=== PATIENT | female | born 1985 | race Native Hawaiian/Other Pacific Islander ===

== ENCOUNTER 2016-09-03 17:01 | Inpatient (IN) | payer MEDICAID, OTHER ==
[2016-09-03 18:08] VITALS: BMI 26.1
[2016-09-03] MEDS ORDERED: Lactated Ringer's 1,000 ML IV SCH (18:15)
[2016-09-03 18:45] LABS: BASO % 0.1 % (0.0-2.0); EOS % 0.2 % (0.0-4.0); HEMATOCRIT 32.5 % (34.0-47.0); LYMPH # 2.2 K/uL (1.0-4.3); LYMPH % 17.5 % (20.0-40.0); MEAN CELL VOLUME 79.9 fL (81.0-99.0); MEAN CORPUSCULAR HEMOGLOBIN 26.3 pg (27.0-31.0); MEAN CORPUSCULAR HGB CONC 32.9 g/dL (33.0-37.0); MONO # 0.7 K/uL (0.0-0.8); MONO % 5.9 % (0.0-10.0); RED CELL DISTRIBUTION WIDTH 14.1 % (11.5-14.5); WHITE BLOOD COUNT 12.6 K/uL (4.8-10.8)
[2016-09-03] MEDS ORDERED: Penicillin G Potassium 5 MU in Dextrose 5% In Water 50 ML IV ONE (18:48)
[2016-09-03 18:49] LABS: CHLORIDE 104 mmol/L (98-107); RBC URINE < 1 /hpf (0-3); URINE BILIRUBIN NEGATIVE (NEGATIVE); URINE BLOOD 3+ (NEGATIVE); URINE COLOR Straw (YELLOW); URINE GLUCOSE (UA) NORMAL (Normal); URINE KETONE NEGATIVE (NEGATIVE); URINE LEUKOCYTE ESTERASE NEG Leu/uL (Negative); URINE PROTEIN NEGATIVE (NEGATIVE); URINE UROBILINOGEN NORMAL mg/dL (0.2-1.0); WBC URINE < 1 /hpf (0-5)
[2016-09-03 18:50] LABS: POTASSIUM 3.9 mmol/L (3.6-5.2); SODIUM 135 mmol/L (132-148)
[2016-09-03 18:52] LABS: AST/SGOT 22 U/L (14-36); BILIRUBIN,TOTAL 0.5 mg/dL (0.2-1.3); BLOOD UREA NITROGEN 4 mg/dL (7-17); CARBON DIOXIDE 20 mmol/L (22-30); GFR AFRICAN-AMERICAN > 60; TOTAL PROTEIN 6.9 g/dL (6.3-8.3)
[2016-09-03 18:53] LABS: ALKALINE PHOSPHATASE 162 U/L (38-126); ALT/SGPT 18 U/L (9-52); CALCIUM 8.7 mg/dl (8.6-10.4); GLUCOSE,RANDOM 79 mg/dL (65-105)
[2016-09-03] MEDS ORDERED: Benzocaine/Menthol 20%-0.5% Topical Spray (60 ml) TOP PRN (19:52)
[2016-09-03] MEDS ORDERED: Oxycodone/Acetaminophen 5/325 mg Tab PO PRN (19:52)
--- NOTE | 2016-09-03 20:33 | OBHP ---
Datetime: 09/03/2016 17:55 IP Adm Impression: , intrauterine ; Active labor; Intact Membranes IP Admit Plan: Admit to unit; Initiate labor protocol Admit Comment, IP Provider: Farrah ID [id number]. Even with building contractor, patient was relatively poor in giving her history 30 yo P1, BLAZE 10/07, EGA 35 weeks, c/o abdominal pain, and vaginal bleeding - both on set 1400 hour s. (+) AFM; deines LOF. Had visit earlier: had cervical exam. 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 x 9 years Fam Hx: Mother alive 54 y.o. Father alive 55 y.o. - both, no med issues. No known fam h/o cancer Assessment: 30 yo P0101, prev h/o delivery, in active labor. GBS - too early for testing. Category 1 tracing. Clinically stable Plan: 1) Admit 2) NPO 3) Admission labs 4) Continuous EFM 5) Epidrual, upon request 6) Penicillin G 7) Anticpate vaginal delivery Pelvic Type - PN: Adequate Extremities - PN: Normal Abdomen - PN: Normal Back - PN: Normal Breast - PN: Not Done Lungs - PN: Normal Heart - PN: Normal Thyroid - PN: Not Done Neurologic - PN: Normal HEENT - PN: Normal General - PN: Normal Presentation-Admit: Vertex FHR - Baseline A Provider: 135 Membranes, Provider: Intact Contraction Comments Provider: 1-2 minutes Comments, ACOG Physical Exam: Skin: warm, dry, intact Abdomen: gravid; soft, non tender; fundal height 34 cm All other systems reviewed and are negative Gestation - Est Wks by US: 35.0 IP Hx Assessment: The History has been Reviewed and is Current EGA AdmitDate IP: 35.1 IP Indication for Induction: Not Applicable IP Chief Complaint: Uterine contractions NICHD Variability Prov Fetus A: Moderate 6-25bpm NICHD Accel Fetus A IP Provider: 15X15 FHR Category Provider Fetus A: Category I NICHD Decel Fetus A IP Provider: None Dilatation, Provider: 4-5 Effacement, Provider: 90 Station, Provider: -2 Genitourinary Exam: Normal DTRs - PN: Not Done
[2016-09-03] MEDS ORDERED: Penicillin G Potassium 2.5 MU in Dextrose 5% In Water 50 ML IV SCH (23:00)
--- NOTE | 2016-09-04 06:06 | OBDS ---
DELIVERY PERSONNEL Delivery Doctor: Eliz Ambrocio MD Mycologist: Sami Mcclelland RN MATERNAL INFORMATION Delivery Anesthesia: None Medications in Delivery: pitocin 20 Maternal Complications: Other Other Maternal Complications: Provider Comments: Uncomplicated vaginal delivery, live male, HELEN, weight 5lb 9oz, Apgars 9/ 9. Peds present at delivery. Cord pH sent. Spontaneous delivery of placenta, grossly intact; 3 vessel cord. Cervix, vagina, perineum inspected - laceration as above; repaired. Hemostasis assured. Patient tolerated procedure well. Bonded with ; transferred to nursery. Mother and in elia in stable condition LABOR SUMMARY EDC: 10/07/2016 00:00 No. Babies in Womb: 1 Attempted: No Labor Anesthesia: None LABOR INFORMATION Reason for Induction: Not Applicable Onset of Labor: 09/03/2016 17:52 Complete Dilatation: 09/03/2016 18:45 Group B Beta Strep: unknown Antibiotics # of Doses: Pen G 5 mil units x1 dose Antibiotics Time of Last Dose: 09/03/16 @ 1859 Steroids Given: None Reason Steroids Not Administered: Not Applicable MEMBRANES Membranes Rupture Method: Spontaneous Rupture of Membranes: 09/03/2016 18:45 Length of Rupture (hrs): 0.30 Amniotic Fluid Color: Clear Amniotic Fluid Amount: Moderate Amniotic Fluid Odor: Normal STAGES OF LABOR Stage 1 hrs: 0 Stage 1 min: 53 Stage 2 hrs: 0 Stage 2 min: 18 Stage 3 hrs: 0 Stage 3 min: 9 Total Time in Labor hrs: 1 Total Time in Labor min: 20 VAGINAL DELIVERY Episiotomy: None Laceration Extension: Second Degree Laceration Type: Vaginal Laceration Repair: Yes Laceration Repair Note: 2-0 chromic, in routine fashion Hemostasis assured. Patient tolerated procedure well Initial Vag Sponge Count: 10 Final Vag Sponge Count: 10 Initial Vag Sharps Count: 2 Final Vag Sharps Count: 2 Sponge Count Correct: Yes Sharps Count Correct: Yes Count Comment: Correct BABY A INFORMATION Infant Delivery Date/Time: 09/03/2016 19:03 Method of Delivery: Vaginal Born in Route : No : N/A Forceps: N/A Vacuum Extraction: N/A Shoulder Dystocia : No SHOULDER DYSTOCIA BABY A Infant Delivery Date/Time: 09/03/2016 19:03 PRESENTATION/POSITION BABY A Presentation: Cephalic Cephalic Presentation: Vertex Vertex Position: Left Occipital Anterior Breech Presentation: N/A PLACENTA INFORMATION BABY A Placenta Delivery Time : 09/03/2016 19:12 Placenta Method of Delivery: Spontaneous Placenta Status: Delivered SCORES BABY A Heart Rate 1 min: >100 bpm Resp Effort 1 min: Good Cry Reflex Irritability 1 min: Cough or Sneeze or Pulls Away Muscle Tone 1 min: Active Motion Color 1 min: Body Athelstan, Extremities Blue SCORE 1 MIN: 9 Heart Rate 5 min: >100 bpm Resp Effort 5 min: Good Cry Reflex Irritability 5 min: Cough or Sneeze or Pulls Away Muscle Tone 5 min: Active Motion Color 5 min: Body Athelstan, Extremities Blue SCORE 5 MIN: 9 INFORMATION BABY A Gestational Age at Delivery: 35.0 Gestational Status: Term Outcome : Liveborn Infant Condition : Stable Sex: Male IDENTIFICATION/MEDS BABY A ID Band Number: [id number] ID Band Location: Left Leg; Left Arm Sensor Applied: Yes Sensor Number: [id number] Sensor Location : Cord Clamp WEIGHT/LENGTH BABY A Infant Birthweight (gms): 2515 Weight (lb): 5 Weight (oz): 9 Infant Length Inches: 18.75 Length cms: 47.6 CORD INFORMATION BABY A No. Cord Vessels: 3 Nuchal Cord : N/A Suction: Mouth; Nose ASSESSMENT BABY A Complications: None Physical Findings at Delivery: Within Normal Limits Respirations: Appears Normal Human Resources Executive Assistant/ALS Called : No Care By: dr rushing Transferred To: [place] [facility]
[2016-09-04 07:30] LABS: HEMATOCRIT 32.8 % (34.0-47.0); MEAN CELL VOLUME 79.9 fL (81.0-99.0); MEAN CORPUSCULAR HEMOGLOBIN 25.9 pg (27.0-31.0); MEAN CORPUSCULAR HGB CONC 32.4 g/dL (33.0-37.0); WHITE BLOOD COUNT 12.9 K/uL (4.8-10.8)
--- NOTE | 2016-09-04 08:05 | OBPPN ---
Datetime: 09/04/2016 08:04 PP Pain Prov: Within normal limits PP Nausea Prov: Denies PP Flatus Prov: Yes PP BM Prov: No PP Heart Prov: Normal PP Lungs Prov: Normal PP Abdomen/Uterus Prov: Normal PP Lochia Prov: Normal PP Vulva/Perineum Prov: Normal PP CVA Tenderness Prov: Normal PP Extremities Prov: Normal PP C/S Incision Prov: Not Applicable PP Progress Prov: Normal PP Impression Prov: Normal progression PP Plan Prov: Continue present management PP Progress Note Prov: S-patient denies any complaints.Pain well controlled.Denies nausea, vomiting, headache. chest pain, shortness of breath, numbness or tingling in hands and feet O-VSS Afebrile Fundus firm and below umbilcius Extremities no calf tenderness A/P Patient s/p vaginal delivery PPD 1 doing well -continue routine pp care -follow up am [facility] -anticipate discharge tomorrow Vital Signs Provider PP: Reviewed; Within Normal Limits
[2016-09-04] MEDS: Multiple Vitamins Tab PO SCH (10:02)
--- NOTE | 2016-09-05 08:18 | OBPPN ---
Datetime: 09/05/2016 08:15 PP Pain Prov: Within normal limits PP Nausea Prov: Denies PP Flatus Prov: Yes PP Heart Prov: Normal PP Lungs Prov: Normal PP Abdomen/Uterus Prov: Normal PP Extremities Prov: Normal PP Comments Phys Exam Prov: fudus below umblicus ext no edema,no calf ten PP Impression Prov: Normal progression PP Plan Prov: Discharge PP Progress Note Prov: pt was seen at bed side, pain under control,no n/v, tolerating deit,voiding,m in lochias,flatus + ppd#2 s/p dc home no sex motrin prn f/u in clinic in 6week Vital Signs Provider PP: Reviewed; Within Normal Limits
--- NOTE | 2016-09-05 08:18 | OBDCSUM ---
Datetime: 09/05/2016 08:16 Discharged to, Provider: Home Follow up at, Provider: [facility] Disch Instr Diet: Regular Discharge Diagnosis, Provider: Delivery Follow up in weeks, Provider: clinic Disch Activity Restrictions: No exercising; No lifting; No driving; Minimize walking; Minimize stair -climbing; No sexual activity; Nothing in vagina - [place], tampons, douche Discharge Comment, Provider: nio sex motrin prn f/u in 6week Discharge Diagnosis Prov Other: 35weeks
[2016-09-05 08:38] VITALS: BP 111/75; PULSE 84; RESP 18; TEMP 97.2; O2SAT 98
[2016-09-05] MEDS: Multiple Vitamins Tab PO SCH (09:25)
== END 2016-09-05 11:30 | disposition home or self-care (01) | DRG 372 ==
LOC: C.EROB 17:01 → C.4D 18:13 → C.4M 22:10
PROVIDERS: ADMIT Obstetrics & Gynecology; ATTEND Obstetrics & Gynecology
PROC: 10E0XZZ Delivery of Products of Conception, External Approach (ICD-10-PCS; principal; 2016-09-03)
PROC: 0KQM0ZZ Repair Perineum Muscle, Open Approach (ICD-10-PCS; 2016-09-03)
DX: O60.14X0 Preterm labor third trimester with preterm delivery third trimester, not applicable or unspecified (principal); O70.1 Second degree perineal laceration during delivery; Z37.0 Single live birth; Z3A.35 35 weeks gestation of pregnancy

== ENCOUNTER 2017-03-15 16:22 | Emergency (ER) | payer MEDICAID, OTHER ==
[2017-03-15 16:22] VITALS: BMI 26.1
[2017-03-15 16:27] VITALS: BP 120/80; PULSE 87; RESP 20; TEMP 97.3; O2SAT 100
--- NOTE | 2017-03-15 16:39 | C.PDOC ---
Time Seen by Provider: 03/15/17 16:33 Chief Complaint (Nursing): Dental Pain Past Medical History Vital Signs: Last Vital Signs Temp 97.3 F L 03/15/17 16:24 Pulse 87 03/15/17 16:24 Resp 20 03/15/17 16:24 BP 120/80 03/15/17 16:24 Pulse Ox 100 03/15/17 16:24 - [facility] Procedures DELIVERY OF PRODUCTS OF CONCEPTION, EXTERNAL APPROACH (09/03/16) REPAIR PERINEUM MUSCLE, OPEN APPROACH (09/03/16) - Social History Hx Alcohol Use: No Hx Substance Use: No - Immunization History Hx Tetanus Toxoid Vaccination: No Hx Influenza Vaccination: No Hx Pneumococcal Vaccination: No ED Course And Treatment O2 Sat by Pulse Oximetry: 100 Disposition Counseled Patient/Family Regarding: Need For Followup, Rx Given - Disposition Referrals: [facility] [Outside]
--- NOTE | 2017-03-15 16:41 | C.PDOC ---
History Of Present Illness 31 year old female presents to the ED complaining of dental pain for 1 month. Pain is due to a broken tooth on the upper left side. Patient has not seen a dentist. Patient denies fever. Time Seen by Provider: 03/15/17 16:33 Chief Complaint (Nursing): Dental Pain History Per: Family History/Exam Limitations: no limitations Onset/Duration Of Symptoms: Days Current Symptoms Are (Timing): Still Present Past Medical History Reviewed: Historical Data, Nursing Documentation, Vital Signs Vital Signs: Last Vital Signs Temp 97.3 F L 03/15/17 16:24 Pulse 87 03/15/17 16:24 Resp 20 03/15/17 16:24 BP 120/80 03/15/17 16:24 Pulse Ox 100 03/15/17 16:45 - Medical History PMH: No Chronic Diseases - [facility] Procedures DELIVERY OF PRODUCTS OF CONCEPTION, EXTERNAL APPROACH (09/03/16) REPAIR PERINEUM MUSCLE, OPEN APPROACH (09/03/16) Family History: States: No Known Family Hx - Social History Hx Alcohol Use: No Hx Substance Use: No - Immunization History Hx Tetanus Toxoid Vaccination: No Hx Influenza Vaccination: No Hx Pneumococcal Vaccination: No Review Of Systems Except As Marked, All Systems Reviewed And Found Negative. Constitutional: Negative for: Fever ENT: Positive for: Other (tooth pain). Negative for: Mouth Swelling Physical Exam - Physical Exam Appears: Well Skin: Normal Color Eye(s): bilateral: Normal Inspection Teeth: Other (broken upper left molar) Gingiva: No Swelling, No Tender, No Bleeding, No Abscess Throat: Normal Neck: Normal ED Course And Treatment O2 Sat by Pulse Oximetry: 100 Progress Note: Plan: --50mg Tramadol Disposition - Disposition Referrals: [facility] [Outside] Condition: STABLE Prescriptions: traMADol [Ultram] 50 mg PO TID PRN #14 tab PRN Reason: Pain, Mild (1-3) Instructions: Toothache (ED) Forms: [email or web address] (Serbian) - Clinical Impression Clinical Impression: Toothache - Scribe Statement The provider has reviewed the documentation as recorded by the Scribe Rubio Aldridge Provider Attestation: All medical record entries made by the Scribe were at my direction and personally dictated by me. I have reviewed the chart and agree that the record accurately reflects my personal performance of the history, physical exam, medical decision making, and the department course for this patient. I have also personally directed, reviewed, and agree with the discharge instructions and disposition.
== END 2017-03-15 16:49 | disposition home or self-care (01) ==
LOC: C.ER 16:22
DX: K08.89 Other specified disorders of teeth and supporting structures (principal)